=== PATIENT | male | born 1960 | race Caucasian/White ===

== ENCOUNTER 2023-12-05 15:20 | Inpatient (IN) | payer OTHER, MEDICAID ==
[~2023-12-05] VITALS: Ht 177.8 cm; Wt 122.5 kg
[2023-12-05 16:10] LABS: BILIRUBIN Negative (Negative); BLOOD Negative (Negative); CLARITY Clear (Clear); COLOR Yellow (Yellow); GLUCOSE Negative (Negative); KETONE Negative (Negative); LEUKO ESTERASE Negative (Negative); NITRITE Negative (Negative); UROBILINOGEN 0.2 E.U./dl (0.0-1.0)
[2023-12-05 16:21] LABS: BASO % 0.3 % (0.0-1.0); EOS # 0.2 10*3/uL (0.0-0.4); EOS % 2.5 % (1.0-4.0); HEMATOCRIT 38.1 % (42.0-52.0); LYMPH # 1.4 10*3/uL (1.3-4.4); LYMPH % 14.7 % (27.0-41.0); MEAN CELL VOLUME 82.6 fl (80.0-94.0); MEAN CORPUSCULAR HGB 27.1 pg (27.0-31.0); MEAN CORPUSCULAR HGB CONC 32.8 g/dl (33.0-37.0); MEAN PLATELET VOLUME 9.6 fl (9.6-12.3); MONO # 0.9 10*3/uL (0.1-1.0); MONO % 9.8 % (3.0-9.0); NEUT # 6.6 10*3/uL (2.3-7.9); NEUT % 72.2 % (47.0-73.0); PLATELET COUNT AUTOMATED 218 10*3/uL (130-400); RED BLOOD COUNT 4.61 10*6/uL (4.50-5.90); RED CELL DISTRI WIDTH 13.4 % (0-14.5); WHITE BLOOD COUNT 9.2 10*3/uL (4.8-10.8)
[2023-12-05 16:22] LABS: URINE AMPHETAMINES Negative (1000ng/ml); URINE BARBITURATES Negative (200ng/ml); URINE BENZODIAZEPINES Negative (200ng/ml); URINE CANNABINOIDS (THC) Negative (50ng/ml); URINE COCAINE Negative (300ng/ml); URINE METHADONE Negative (300ng/ml); URINE OPIATES Negative (300ng/ml); URINE PHENCYCLIDINE Negative (25ng/ml)
[2023-12-05 16:41] LABS: ALKALINE PHOSPHATASE 125 U/L (46-116); BUN 31 mg/dl (9-23); CHLORIDE 101 mmol/L (98-107); POTASSIUM 4.1 mmol/L (3.4-5.1); TOTAL PROTEIN 8.1 gm/dL (6.0-8.0)
[2023-12-05 16:42] LABS: MUCOUS 1+
[2023-12-05 16:44] LABS: ETHYL ALCOHOL < 3.0 mg/dl (<3); SGPT/ALT < 7 U/L (5-49)
[2023-12-05 18:45] VITALS: BP 132/82
[2023-12-05] MEDS ORDERED: NORVASC5 MG PO (19:43)
[2023-12-05] MEDS ORDERED: ASPIRIN ADULT L81 M2 PO (19:44)
[2023-12-05] MEDS ORDERED: CLARITIN10 MG PO (19:45)
[2023-12-05] MEDS ORDERED: DULCOLAX STOOL100 M1 PO (19:46)
[2023-12-05] MEDS ORDERED: BISACODYL10 MG R (19:47)
[2023-12-05] MEDS ORDERED: FINASTERIDE5 M1 PO (19:47)
[2023-12-05] MEDS ORDERED: FLUTICASONE-SA1 EAC3 INH (19:49)
[2023-12-05] MEDS ORDERED: FLUVOXAMINE100 MG PO (19:50)
[2023-12-05] MEDS ORDERED: GEMFIBROZIL600 MG PO (19:52)
[2023-12-05] MEDS ORDERED: FLUVOXAMINE50 MG PO (19:52)
[2023-12-05] MEDS ORDERED: LASIX40 MG PO (19:53)
[2023-12-05] MEDS ORDERED: INVEGA3 MG PO (19:53)
[2023-12-05] MEDS ORDERED: ANTI-DIARRHEAL2 MG PO (19:54)
[2023-12-05] MEDS ORDERED: MELATONIN5 M1 SL (19:55)
[2023-12-05] MEDS ORDERED: MILK OF MA400 MG/5 M PO (19:55)
[2023-12-05] MEDS ORDERED: DAILY VALUE1 EACH PO (19:56)
[2023-12-05] MEDS ORDERED: PANTOPRAZOLE SO40 MG PO (19:56)
[2023-12-05] MEDS ORDERED: HEALTHYLAX17 GM PO (19:57)
[2023-12-05] MEDS ORDERED: REFRESH CLASSI1 EACH OP (19:58)
[2023-12-05] MEDS ORDERED: POTASSIUM CHLO10 ME4 PO (19:59)
[2023-12-05] MEDS ORDERED: MINIPRESS1 MG PO (19:59)
[2023-12-05 20:00] VITALS: BP 123/81
[2023-12-05] MEDS ORDERED: TAMSULOSIN HCL0.4 MG PO (20:00)
[2023-12-05] MEDS ORDERED: PHENERGAN25 M3 PO (20:00)
[2023-12-05] MEDS ORDERED: TRAMADOL HCL50 MG PO (20:01)
[2023-12-05] MEDS ORDERED: GEODON20 MG/1 ML IM (20:03)
[2023-12-05] MEDS ORDERED: GEMTESA75 MG PO (20:03)
[2023-12-05] MEDS ORDERED: ATIVAN1 MG PO (20:03)
[2023-12-05] MEDS ORDERED: STERILE WATER 110 ML IM (20:04)
[2023-12-05] MEDS ORDERED: APAP325 MG PO (20:17)
[2023-12-05] MEDS ORDERED: PROAIR RESPICL90 MCG INH (20:24)
[2023-12-05] MEDS ORDERED: ALUM-MAG HYDROX30 ML PO (20:25)
[2023-12-05] MEDS ORDERED: Ziprasidone Mesylate 20 MG VIAL IM PRN (21:05)
[2023-12-05] MEDS ORDERED: LORazepam 1 MG TAB PO PRN (21:05)
[2023-12-05] MEDS ORDERED: Water, Sterile 10 ML VIAL IM PRN (21:05)
[2023-12-05] MEDS ORDERED: Menthol/Zinc Oxide 4 GM THIN T PRN (21:15)
[2023-12-05] MEDS ORDERED: Prazosin Hydrochloride 1 MG CAP PO SCH (22:00)
[2023-12-05] MEDS ORDERED: Melatonin 5 MG TABLET PO SCH (22:00)
[2023-12-05] MEDS ORDERED: BUDESONIDE 0.5 MG AMP NEB SCH (22:30)
[2023-12-05] MEDS ORDERED: Albuterol Sulfate 2.5 MG/3 ML VIAL NEB SCH (22:30)
[2023-12-06] MEDS ORDERED: GEMFIBROZIL 600 MG TAB PO SCH (07:30)
[2023-12-06 08:00] VITALS: BP 118/73
[2023-12-06] MEDS ORDERED: FUROSEMIDE 40 MG TAB PO SCH (09:00)
[2023-12-06] MEDS ORDERED: Paliperidone 3 MG TER PO SCH (09:00)
[2023-12-06] MEDS ORDERED: amLODIPine besylate 5 MG TAB PO SCH (09:00)
[2023-12-06] MEDS ORDERED: FINASTERIDE 5 MG TAB PO SCH (09:00)
[2023-12-06] MEDS ORDERED: FLUTICASONE PROPIONATE INH SCH (09:00)
[2023-12-06] MEDS ORDERED: ASPIRIN ENTERIC COATED 81 MG TAB PO SCH (09:00)
[2023-12-06] MEDS ORDERED: SALMETEROL INH SCH (09:00)
[2023-12-06] MEDS ORDERED: Pantoprazole Sodium 40 MG TAB PO SCH (09:00)
[2023-12-06 09:31] LABS: CHOLESTEROL 139 mg/dL (<200); LDL CHOLESTEROL 90 mg/dL (9-159); TRIGLYCERIDES 78 mg/dl (<150)
[2023-12-06 10:21] LABS: VITAMIN D, 25-HYDROXY 43.9 ng/mL (30-100)
[2023-12-06] MEDS ORDERED: Trihexyphenidyl Hydrochlorid 2 MG TAB PO SCH (13:00)
[2023-12-06] MEDS ORDERED: FOAM BANDAGE 5X5 T ONE (16:17)
[2023-12-06] MEDS ORDERED: HYDROGEL WOUND DRESSING T ONE (16:17)
[2023-12-06] MEDS ORDERED: Loperamide Hydrochloride 2 MG CAP PO PRN (17:00)
[2023-12-06 20:00] VITALS: BP 104/68
[2023-12-06] MEDS ORDERED: Prazosin Hydrochloride 1 MG CAP PO SCH (21:00)
[2023-12-06] MEDS ORDERED: NYSTATIN 15 GM BOT T SCH (22:00)
[2023-12-07 07:42] VITALS: BP 103/70
[2023-12-07] MEDS ORDERED: Paliperidone 6 MG TER PO SCH (09:00)
[2023-12-07 20:00] VITALS: BP 106/65
[2023-12-07] MEDS ORDERED: LORazepam 1 MG TAB PO SCH (21:00)
[2023-12-08 07:31] VITALS: BP 104/65
[2023-12-08] MEDS ORDERED: clonazePAM 0.5 MG TAB PO SCH (09:55)
[2023-12-08] MEDS ORDERED: ACETAMINOPHEN 325 MG TAB PO PRN (11:00)
[2023-12-08] MEDS ORDERED: FOAM BANDAGE 5X5 T ONE (17:48)
[2023-12-08 20:00] VITALS: BP 112/61
[2023-12-08] MEDS ORDERED: clomiPRAMINE Hydrochloride 25 MG CAP PO SCH (21:00)
[2023-12-08] MEDS ORDERED: clonazePAM 1 MG TAB PO SCH (21:00)
[2023-12-09 07:29] VITALS: BP 108/71
[2023-12-09 20:00] VITALS: BP 117/76
[2023-12-09] MEDS ORDERED: RAMELTEON 8 MG TAB PO SCH (21:00)
[2023-12-09] MEDS ORDERED: clomiPRAMINE Hydrochloride 25 MG CAP PO SCH (21:00)
[2023-12-10 07:46] VITALS: BP 109/70
[2023-12-10] MEDS ORDERED: CLOMIPRAMINE HC25 MG PO (09:55)
[2023-12-10] MEDS ORDERED: CLONAZEPAM1 MG PO (09:55)
[2023-12-10] MEDS ORDERED: MINIPRESS1 M1 PO (09:55)
[2023-12-10] MEDS ORDERED: TRIHEXYPHENIDYL2 M3 PO (09:55)
[2023-12-10] MEDS ORDERED: RAMELTEON8 MG PO (09:55)
[2023-12-10] MEDS ORDERED: CLONAZEPAM0.5 M2 PO (09:55)
[2023-12-10] MEDS ORDERED: PALIPERIDONE ER6 MG PO (09:55)
== END 2023-12-10 11:03 | DRG 885 ==
LOC: ED 15:20 → 3N 17:04
PROVIDERS: Nurse Practitioner; Nurse Practitioner Family; ADMIT Psychiatry & Neurology Psychiatry; ATTEND Psychiatry & Neurology Psychiatry
DX: F25.9 Schizoaffective disorder, unspecified (principal); F63.81 Intermittent explosive disorder; F43.21 Adjustment disorder with depressed mood; D50.9 Iron deficiency anemia, unspecified; K21.9 Gastro-esophageal reflux disease without esophagitis; R19.7 Diarrhea, unspecified; R73.9 Hyperglycemia, unspecified; I10 Essential (primary) hypertension; F42.9 Obsessive-compulsive disorder, unspecified; F41.9 Anxiety disorder, unspecified; E78.5 Hyperlipidemia, unspecified; R73.03 Prediabetes; Z88.6 Allergy status to analgesic agent; Z91.030 Bee allergy status; Z90.49 Acquired absence of other specified parts of digestive tract; Z88.8 Allergy status to other drugs, medicaments and biological substances; Z79.82 Long term (current) use of aspirin; Z79.899 Other long term (current) drug therapy